=== PATIENT | female | born 2005 | race Caucasian/White ===

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

== ENCOUNTER 2025-04-26 19:30 | Emergency (ER) | payer SELFPAY ==
[2025-04-26 19:35] VITALS: BP 132/96; PULSE 113; RESP 22; TEMP 37.1; O2SAT 98; BMI 31.0
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
[2025-04-26] MEDS: KETOROLAC 30MG/ML VIAL 15 MG IV (19:50)
[2025-04-26] MEDS: BACITRACIN ZINC OINT 30GM TUBE TP (21:03)
[2025-04-26 21:13] VITALS: BP 129/91; PULSE 91; RESP 20; TEMP 36.9; O2SAT 98
--- NOTE | 2025-04-26 21:14 | PC.NURSE ---
IV discontinued. Catheter tip intact. Bleeding controlled.
== END 2025-04-26 21:15 | disposition home or self-care (01) ==
PROVIDERS: Emergency Provider Emergency Medicine
DX: S50.11XA Contusion of right forearm, initial encounter (principal); S80.812A Abrasion, left lower leg, initial encounter; V49.40XA Driver injured in collision with unspecified motor vehicles in traffic accident, initial encounter; Y92.410 Unspecified street and highway as the place of occurrence of the external cause
CPT/HCPCS: 73090; 73110; 73130; 73590; 96374; 99284; J1885